=== PATIENT | female | born 1945 | race Caucasian/White ===

== ENCOUNTER → 2016-03-06 | Outpatient (CLI) | payer MEDICARE | LOC: GMAL 12:51 | PROVIDERS: ATTEND Family Medicine | DX: D51.3 Other dietary vitamin B12 deficiency anemia (principal); R53.83 Other fatigue ==

== ENCOUNTER → 2016-04-17 | Outpatient (CLI) | payer MEDICARE ==
--- NOTE | 2016-04-17 15:38 | CT ---
EXAM DESCRIPTION: CTA Neck CLINICAL HISTORY: 71 years Female, endarterectomy, possible stenosis April 17, 2013 TECHNIQUE: CT angiogram of the neck was performed. The data was reconstructed into rotational images of the carotid arteries. Volumetric images were available for interpretation. FINDINGS: Patient has undergone right carotid endarterectomy. The right common carotid artery, carotid bulb and right cervical internal carotid artery are patent on today's study with no significant narrowing. The left common carotid artery, left carotid bulb and cervical left internal carotid artery are stable in appearance with evidence of previous endarterectomy. The left subclavian artery is occluded at its origin. There is a left internal carotid artery stent noted. The stent demonstrates minimal narrowing within its proximal third, but likely no significant flow limiting narrowing. The left common carotid artery to left subclavian artery anastomosis is patent on today's study. No mass on today's study. The orbits and globes are unremarkable. Paranasal sinuses are clear. The tongue, base of tongue and floor of mouth are unremarkable. The salivary glands are unremarkable. The true and false cords are symmetrical and likely unremarkable. Epiglottis is sharp. Redundant tissue noted within the right vallecula. IMPRESSION: Bilateral endarterectomies noted. Bilateral common carotid arteries, carotid bulbs and cervical internal carotid arteries are patent on today's exam with no significant narrowing. Left common carotid artery to left subclavian artery bypass anastomosis is widely patent on today's study. The [place] band left subclavian artery is occluded from its origin. The proximal left common carotid artery stent is patent on today's study with no evidence of significant narrowing. Moderate emphysema noted. Electronically signed by: Keon Proctor MD 04/17/2016 3:37 PM [facility]
== END | disposition home or self-care (01) ==
LOC: CT 10:13
PROVIDERS: ATTEND Family Medicine
DX: I65.23 Occlusion and stenosis of bilateral carotid arteries (principal)

== ENCOUNTER → 2016-09-14 | Outpatient (CLI) | payer MEDICARE | END | disposition home or self-care (01) | LOC: GMAL 14:07 | PROVIDERS: ATTEND Family Medicine | DX: D51.3 Other dietary vitamin B12 deficiency anemia (principal); E55.9 Vitamin D deficiency, unspecified ==

== ENCOUNTER → 2016-09-18 | Outpatient (CLI) | payer MEDICARE ==
--- NOTE | 2016-09-18 11:33 | US ---
EXAM DESCRIPTION: Liver CLINICAL HISTORY: Nonspecific elevation of levels of transaminase and LDH COMPARISON: CT the abdomen dated 13 October 2010, abdominal sonography dated 10 April 2013 TECHNIQUE: Right upper quadrant ultrasound] FINDINGS: Hepatic steatosis is observed. There is no bile duct dilatation. The common bile duct measures 5.6 mm. The gallbladder is been previously removed. Portions of the pancreas seen appear normal. The upper abdominal aorta and the inferior vena cava are unremarkable. The right kidney is normal in size, shape, and echotexture. IMPRESSION: 1. Hepatic steatosis is observed. 2. Cholecystectomy Electronically signed by: Jose Raul Herr MD 09/18/2016 11:32 AM CDT
== END ==
LOC: US 10:23
PROVIDERS: ATTEND Family Medicine
DX: R74.0 Nonspecific elevation of levels of transaminase and lactic acid dehydrogenase [LDH] (principal); K76.0 Fatty (change of) liver, not elsewhere classified; Z90.49 Acquired absence of other specified parts of digestive tract

== ENCOUNTER → 2016-12-28 | Outpatient (CLI) | payer MEDICARE | END | disposition home or self-care (01) | LOC: GMAL 14:14 | PROVIDERS: ATTEND Family Medicine | DX: D53.9 Nutritional anemia, unspecified (principal); E55.9 Vitamin D deficiency, unspecified ==

== ENCOUNTER 2017-04-20 17:40 | Emergency (ER) | payer MEDICARE, OTHER ==
[2017-04-20 18:01] VITALS: BP 169/85; TEMP 99; O2SAT 93
--- NOTE | 2017-04-20 18:19 | RAD ---
EXAM DESCRIPTION: Knee,Right Complete CLINICAL HISTORY: pain post fall COMPARISON: None. TECHNIQUE: 3 views right FINDINGS: Calcific density is projected over the lateral joint space. I believe it to be artifactual is its only seen on the AP view. No fracture is detected. Mild loss of medial joint space is noted. No fracture is detected. IMPRESSION: Mild degenerative changes are observed in the medial joint compartment. No fracturing is detected. Electronically signed by: Jose Raul Herr MD 04/20/2017 6:18 PM [facility]
[2017-04-20] MEDS ORDERED: NEOMYCIN-BACITRACIN-POLYMYXIN 0.9 GM UD TOP ONE (18:35)
--- NOTE | 2017-04-20 18:41 | ED.PDOC ---
History of Present Illness - General Chief Complaint: Trauma Stated Complaint: right knee pain Time Seen by Provider: 04/20/17 18:16 Source: patient Exam Limitations: no limitations - History of Present Illness Initial Comments: SLIPPED AT [facility] AND LANDED ON HER R KNEE. NO OTHER COLLISION OR INJURY. NO LOC. NO HEAD COLLISION. Occurred: just prior to arrival Severity: moderate Pain Location: lower extremity Method of Injury: fall Improving Factors: immobilization Loss of Consciousness: no loss of consciousness Associated Symptoms (Fall): denies symptoms Allergies/Adverse Reactions: Allergies NO KNOWN ALLERGY Allergy (Verified 04/20/17 18:02) Review of Systems - Review of Systems Constitutional: States: no symptoms reported EENTM: States: no symptoms reported Respiratory: States: no symptoms reported Cardiology: States: no symptoms reported Gastrointestinal/Abdominal: States: no symptoms reported Genitourinary: States: no symptoms reported Musculoskeletal: States: see HPI. Denies: back pain, neck pain Skin: States: no symptoms reported Neurological: States: no symptoms reported. Denies: paresthesia, tremors Endocrine: States: no symptoms reported Hematologic/Lymphatic: States: no symptoms reported All other Systems: Reviewed and Negative Past Medical History (General) - Patient Medical History Hx Seizures: No Hx Stroke: No Hx Dementia: No Hx of COPD: No Hx Cardiac Disorders: Yes Hx Congestive Heart Failure: No Hx Hypertension: Yes Hx Diabetes: Yes Hx Renal Disease: No Surgical History: cholecystectomy, other Family Medical History - Family History Mother Family History: No Known Physical Exam - Physical Exam General Appearance: Alert, Well Nourished Head Injury: no evidence of injury Eye Exam: bilateral normal ENT Exam: hearing grossly normal, no evidence of ENT injury, no dental injury Neck Exam: non-tender, full range of motion Cardiovascular/Respiratory: regular rate, rhythm, no M/R/G Gastrointestinal/Abdominal: non tender, soft Back Exam: no vertebral tenderness Extremity Exam: normal range of motion, non-tender, pelvis stable, other - IS ABLE TO BEAR WEIGHT; ANTALGIC GAIT. Neurologic: no motor/sensory deficits, alert, normal mood/affect Skin Exam: normal color, other - SMALL SKIN TEAR, R POPLITEAL. - [place] Coma Score Fady Total: 15 Progress - Results/Orders Results/Orders: XRAY NEG. R KNEE STRAIN/SPRAIN. RICE. MOTRIN PRN. PT DECLINES KNEE BRACE. Departure - Departure Clinical Impression: Contusion of right knee, initial encounter, Fall, Knee pain, right Disposition: Discharge to Home or Self Care Condition: Good Departure Forms: ED Discharge - Pt. Copy, Patient Portal Self Enrollment Diet: resume usual diet Activity: increase activity as tolerated Referrals: Jose Raul Miller III, MD [Primary Care Provider] - 1 Week Additional Instructions: Please apply ice to the area, elevate the leg, and take it easy for a couple days until it starts feeling better. Take ibuprofen as needed for pain.
== END 2017-04-20 18:54 | disposition home or self-care (01) ==
LOC: ER 17:40
DX: S80.01XA Contusion of right knee, initial encounter (principal); I10 Essential (primary) hypertension; E11.9 Type 2 diabetes mellitus without complications; W01.0XXA Fall on same level from slipping, tripping and stumbling without subsequent striking against object, initial encounter; Y92.59 Other trade areas as the place of occurrence of the external cause

== ENCOUNTER 2018-03-16 20:01 | Emergency (ER) | payer OTHER ==
[2018-03-16 20:36] VITALS: TEMP 99
[2018-03-16] MEDS ORDERED: SODIUM CHLORIDE 0.9% 1000ML 1,000 ML IVS ONE (21:06)
[2018-03-16] MEDS ORDERED: ONDANSETRON INJ 4 MG/2 ML VIAL IV ONE (21:06)
--- NOTE | 2018-03-16 21:26 | ED.PDOC ---
History of Present Illness - General Chief Complaint: GI Problem Stated Complaint: N/V/D Time Seen by Provider: 03/16/18 21:16 Source: patient - History of Present Illness Initial Comments: N/V/D ONSET TODAY. UNABLE TO HOLD ANY FLUIDS DOWN. 10 STOOLS TODAY, WATERY NO BLOOD. Severity: moderate Improving Factors: nothing Worsening Factors: nothing Associated Symptoms: weakness - GENERALIZED Allergies/Adverse Reactions: Allergies NO KNOWN ALLERGY Allergy (Verified 03/16/18 20:27) Home Medications: Ambulatory Orders Amitriptyline HCl [Elavil] 25 mg PO DAILY 03/16/18 Metformin HCl [Metformin HCl ER] 500 mg PO BID 03/16/18 RX: Aspirin 325 mg PO DAILY 03/16/18 RX: Chlordiazepoxide HCl 10 mg PO DAILY 03/16/18 RX: Docusate Sodium 100 mg PO DAILY 03/16/18 RX: Simvastatin 40 mg PO DAILY 03/16/18 Promethazine Supp [Phenergan Suppository] 25 mg TX Q4HR PRN #14 sup 03/17/18 Review of Systems - Review of Systems Constitutional: Denies: chills, fever EENTM: States: no symptoms reported Respiratory: Denies: cough, short of breath Cardiology: Denies: chest pain, palpitations Gastrointestinal/Abdominal: States: abdominal pain, diarrhea, nausea, vomiting Genitourinary: States: no symptoms reported Musculoskeletal: States: no symptoms reported Skin: States: no symptoms reported Neurological: States: headache Endocrine: States: no symptoms reported Hematologic/Lymphatic: States: no symptoms reported Past Medical History (General) - Patient Medical History Hx Seizures: No Hx Stroke: No Hx Dementia: No Hx of COPD: No Hx Cardiac Disorders: Yes - CAD, PVD Hx Congestive Heart Failure: No Hx Hypertension: Yes Hx Diabetes: Yes Hx Renal Disease: No Hx Cancer: No Surgical History: cholecystectomy - Vaccination History Hx Tetanus, Diphtheria Vaccination: No Hx Influenza Vaccination: Yes Hx Pneumococcal Vaccination: Yes Immunizations Up to Date: No - Social History Hx Alcohol Use: No Hx Substance Use: No Hx Substance Use Treatment: No Hx Depression: No - Female History Patient is a Female of Child Bearing Age (10 -59 yrs old): No Family Medical History - Family History Mother Family History: No Known Physical Exam - Physical Exam General Appearance: Alert, No apparent distress Eye Exam: bilateral normal Ears, Nose, Throat: hearing grossly normal, other - MM SLIGHTLY DRY Neck: non-tender, full range of motion, supple Respiratory: lungs clear, normal breath sounds Cardiovascular/Chest: regular rate, rhythm, no murmur Gastrointestinal/Abdominal: non tender, soft, no organomegaly Back Exam: normal inspection, no CVA tenderness Neurologic: alert, normal mood/affect Skin Exam: normal color, warm/dry Lymphatic: no adenopathy Progress - Progress Progress: 03/17/18 00:07 FEELS BETTER, HUY PO FLUIDS, NO FURTHER DIARRHEA. WANTS TO GO HOME. Departure - Departure Clinical Impression: Gastroenteritis, Dehydration Time of Disposition: 00:09 Disposition: Discharge to Home or Self Care Condition: Fair Departure Forms: ED Discharge - Pt. Copy, Patient Portal Self Enrollment Instructions: Viral Gastroenteritis Referrals: Jose Raul Miller III, MD [Primary Care Provider] - 1-2 Weeks Prescriptions: Promethazine Supp [Phenergan Suppository] 25 mg TX Q4HR PRN #14 sup PRN Reason: Vomiting Home Medications: Ambulatory Orders Amitriptyline HCl [Elavil] 25 mg PO DAILY 03/16/18 Metformin HCl [Metformin HCl ER] 500 mg PO BID 03/16/18 RX: Aspirin 325 mg PO DAILY 03/16/18 RX: Chlordiazepoxide HCl 10 mg PO DAILY 03/16/18 RX: Docusate Sodium 100 mg PO DAILY 03/16/18 RX: Simvastatin 40 mg PO DAILY 03/16/18 Promethazine Supp [Phenergan Suppository] 25 mg TX Q4HR PRN #14 sup 03/17/18
[2018-03-16] MEDS ORDERED: PROMETHAZINE HCL INJ 12.5 MG in SODIUM CHLORIDE 0.9% 50ML 50 ML IVPB ONE (22:38)
[2018-03-16] MEDS ORDERED: PROMETHAZINE HCL INJ 25 MG/ML VIAL ONE (22:45)
[2018-03-16] MEDS ORDERED: SODIUM CHLORIDE 0.9% 50ML 50 ML ONE (22:45)
[2018-03-16] MEDS ORDERED: MORPHINE SULFATE INJ 10 MG/ML VIAL ONE (23:42)
[2018-03-16] MEDS ORDERED: MORPHINE SULFATE INJ 10 MG/ML VIAL IV ONE (23:45)
[2018-03-17 00:30] VITALS: BP 132/86; O2SAT 97
== END 2018-03-17 00:29 | disposition home or self-care (01) ==
LOC: ER 20:01
DX: K52.9 Noninfective gastroenteritis and colitis, unspecified (principal); E86.0 Dehydration; I25.10 Atherosclerotic heart disease of native coronary artery without angina pectoris; E11.9 Type 2 diabetes mellitus without complications; I10 Essential (primary) hypertension; Z90.49 Acquired absence of other specified parts of digestive tract; Z79.82 Long term (current) use of aspirin; Z79.899 Other long term (current) drug therapy
CPT/HCPCS: 80053; 85025; 87502; A4216; J2270; J2405; J2550; J7030

== ENCOUNTER → 2018-06-29 | Outpatient (CLI) | payer OTHER | LOC: GMAL 12:31 | PROVIDERS: ATTEND Family Medicine | DX: R53.83 Other fatigue (principal); E78.49 Other hyperlipidemia; Z79.899 Other long term (current) drug therapy ==

== ENCOUNTER → 2019-03-07 | Outpatient (CLI) | payer OTHER | LOC: GMAL 14:22 | PROVIDERS: ATTEND Family Medicine | DX: D51.3 Other dietary vitamin B12 deficiency anemia (principal); E55.9 Vitamin D deficiency, unspecified; E11.9 Type 2 diabetes mellitus without complications; E78.49 Other hyperlipidemia; Z79.899 Other long term (current) drug therapy ==

== ENCOUNTER → 2019-03-14 | Outpatient (CLI) | payer OTHER, MEDICARE ==
--- NOTE | 2019-03-14 16:05 | US ---
EXAM DESCRIPTION: Aorta: Ultrasound. CLINICAL HISTORY: Abdominal aortic aneurysm, without rupture COMPARISON: Ultrasound liver September 2016. TECHNIQUE: Transcutaneous scanning: Two-dimensional and Doppler modes. FINDINGS: Abdominal aorta diameter - Proximal: 3.2 x 1.9 cm. Mid: 5.6 x 4.6 x 4.4 cm. Distal: 2.9 x 2.5 cm. Common Iliac diameter - Right: 8.3 mm. Left: 10.9 mm. Other: Suggestion of 2 channels/lumens in the mid aortic aneurysm. Extensive atherosclerotic calcification... IMPRESSION: 5.6 cm mid abdominal aortic aneurysm with suggestion of 2 channels/lumens on color Doppler evaluation. Extensive atherosclerotic calcification. Referral to vascular surgeon recommended for all abdominal aortic aneurysms greater than 5.5 cm. Reference: J Am Edwin Radiol 2013;10:789-794. Electronically signed by: Andrew Cooley MD 03/14/2019 4:03 PM [facility]
--- NOTE | 2019-03-14 16:08 | US ---
EXAM DESCRIPTION: Aorta: Ultrasound. CLINICAL HISTORY: Abdominal aortic aneurysm, without rupture COMPARISON: Ultrasound liver September 2016. TECHNIQUE: Transcutaneous scanning: Two-dimensional and Doppler modes. FINDINGS: Abdominal aorta diameter - Proximal: 3.2 x 1.9 cm. Mid: 5.6 x 4.6 x 4.4 cm. Distal: 2.9 x 2.5 cm. Common Iliac diameter - Right: 8.3 mm. Left: 10.9 mm. Other: Suggestion of 2 channels/lumens in the mid aortic aneurysm. Extensive atherosclerotic calcification... IMPRESSION: 5.6 cm mid abdominal aortic aneurysm with suggestion of 2 channels/lumens on color Doppler evaluation. Extensive atherosclerotic calcification. Referral to vascular surgeon recommended for all abdominal aortic aneurysms greater than 5.5 cm. Reference: J Am Edwin Radiol 2013;10:[id number]. Electronically signed by: Andrew Cooley MD 03/14/2019 4:03 PM [facility]
--- NOTE | 2019-03-14 16:08 | US ---
EXAM DESCRIPTION: Aorta: Ultrasound. CLINICAL HISTORY: Abdominal aortic aneurysm, without rupture COMPARISON: Ultrasound liver September 2016. TECHNIQUE: Transcutaneous scanning: Two-dimensional and Doppler modes. FINDINGS: Abdominal aorta diameter - Proximal: 3.2 x 1.9 cm. Mid: 5.6 x 4.6 x 4.4 cm. Distal: 2.9 x 2.5 cm. Common Iliac diameter - Right: 8.3 mm. Left: 10.9 mm. Other: Suggestion of 2 channels/lumens in the mid aortic aneurysm. Extensive atherosclerotic calcification... IMPRESSION: 5.6 cm mid abdominal aortic aneurysm with suggestion of 2 channels/lumens on color Doppler evaluation. Extensive atherosclerotic calcification. Referral to vascular surgeon recommended for all abdominal aortic aneurysms greater than 5.5 cm. Reference: J Am Edwin Radiol 2013;10:[id number]. Electronically signed by: Anrdew Cooley MD 03/14/2019 4:03 PM [facility]
--- NOTE | 2019-03-15 09:29 | US ---
EXAM DESCRIPTION: Carotid Duplex: ULTRASOUND. CLINICAL HISTORY: 74 years Female Occlusion and stenosis of unspecified carotid artery bilateral carotids "cleaned out". COMPARISON: Abdominal aorta ultrasound on the same visit. CTA neck April 2016. TECHNIQUE: Transcutaneous scanning utilizing hand-scale and Doppler modes to evaluate the bilateral carotid systems and vertebral arteries. Percentage of diameter of stenosis or no stenosis recorded will be based upon NASCET criteria. FINDINGS: Peak systolic/end diastolic (CM-Sec) CCA Right 150/4 Left 102/8. ICA Right proximal 73/7, mid 143/30. Left proximal 32/13, mid 30/19. Vertebral Right 76/11 Left 36/0. ECA (PS Only) Right 72 left 41. ICA/CCA peak systolic ratio: Right 1.0 Left 0.3 ICA/CCA end diastolic ratio: Right 7.5 Left 1.6 Vertebral arteries: antegrade flow right. Inverted waveform on the left suggesting retrograde flow. Comments: Moderate amount of hard plaque and soft plaque bilateral common carotid bifurcations and proximal ICAs. Left CCA bulb: 77% area stenosis and 72 % diameter stenosis. Proximal left ICA 40% area stenosis and 44% diameter stenosis. Less than 25% area and diameter stenosis left common carotid bulb and left proximal ICA. Spectral broadening in the bilateral proximal and mid ICAs, more on the left. Stent seen in the left proximal CCA on the prior CTA not well demonstrated on this examination.. IMPRESSION: 1. Doppler evaluation of the bilateral carotid systems and vertebral arteries shows hemodynamically significant stenosis of greater than 70% in the right common carotid bulb, but no significant stenosis seen on grayscale images. However, grayscale imaging measurements showing no hemodynamically significant stenosis greater than 70% in the left common carotid bulb, but no stenosis by Doppler. 2. 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 3. Moderate amount of plaque seen in the carotid arteries bilaterally, more on the left. Bilateral vertebral arteries showed antegrade-cephalad flow. 4. Due to discordant findings in the carotids bilaterally, consider follow-up CTA of the neck. Electronically signed by: Andrew Cooley MD 03/15/2019 9:28 AM [facility]
== END ==
LOC: US 07:11
PROVIDERS: ATTEND Family Medicine
DX: I65.23 Occlusion and stenosis of bilateral carotid arteries (principal); I71.4 Abdominal aortic aneurysm, without rupture; I70.0 Atherosclerosis of aorta

== ENCOUNTER → 2019-11-29 | Outpatient (CLI) | payer OTHER | LOC: GMAL 14:14 | PROVIDERS: ATTEND Family Medicine | DX: D51.3 Other dietary vitamin B12 deficiency anemia (principal); E55.9 Vitamin D deficiency, unspecified; R53.83 Other fatigue; Z79.899 Other long term (current) drug therapy; E11.9 Type 2 diabetes mellitus without complications; E78.49 Other hyperlipidemia ==